=== PATIENT | male | born 2005 | race Caucasian/White ===

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

== ENCOUNTER 2025-07-22 03:48 | Emergency (ER) | payer MEDICAID, SELFPAY ==
[2025-07-22 03:50] VITALS: BP 130/70; PULSE 108; RESP 18; TEMP 37.4; O2SAT 98
--- OUTSIDE RECORDS SUMMARY | 2025-07-22 03:51 | XMS_ITS | Clinical Summary ---
Author Organization [facility] Address [address] [place] [address] Care Team Providers Care Buncher Hand Name Role Phone Dandre Quintanilla MD Primary Care Provider [phone] Dandre Quintanilla MD Unavailable Source Comments [facility],non-owned Affiliates and Associated Physician Practices is amultiple site organization consisting of ambulatory clinics and hospital sitesin [place], [place], [place] and [place]. This disclosure is being madepursuant to the Care Everywhere program and may not contain all information available regarding this patient. Last updated 18.[facility] Allergies No known active allergies Medications * Be aware that medications may not be up to date on this document. Alwaysverify current medications with the patient. EPINEPHrine (EPIPEN JR) 0.15 MG/0.3ML SOAJ 0.15 mg by Injection route as needed (Allergic reaction with difficulty breathing). 1 Each 0 4 Active Additional Information Patient not taking.Reported on 05/14/2022 bacitracin ointment Apply to affected area 3 times daily 28 g 0 Active Additional Information Patient not taking.Reported on 05/14/2022 Active Problems Problem Noted Date Diagnosed Date Acute alcoholic intoxication with complication 0 01/24/2021 Transaminitis 01/24/2021 Social History Tobacco Use Types Packs/Day Years Used Date Smoking Tobacco: Some Days Cigarettes Smokeless Tobacco: Current Chew Alcohol Use Standard Drinks/Week Comments Yes 0 (1 standard drink = 0.6 oz pur e alcohol) AUDIT-C Answer Date Recorded Q1: How often do you have a drink containing alc ohol? 2-4 times a month 05/14/2022 Q2: How many drinks containi ng alcohol do you have on a typical day when you are drinking? 7 to 9 05/14/2022 Q3: How often do you have si x or more drinks on one occasion? Monthly 05/14/2022 Sex and Gender Information Value Date Recorded Sex Assigned at Not on file Legal Sex Male 5:43 AM [employer] Gender Identity Not on file Sexual Orientation Not on file Last Filed Vital Signs Vital Sign Reading Time Taken Comments Blood Pressure 127/74 05/14/2022 6:30 AM CDT Pulse 79 05/14/2022 6:33 AM CDT Temperature 36.9 C (98.4 F) 05/14/2022 5:03 AM CDT Respiratory Rate 16 05/14/2022 6:33 AM CDT Oxygen Saturation 97% 05/14/2022 6:33 AM CDT Inhaled Oxygen Concentration - - Weight 60.5 kg (133 lb 6.1 oz) 05/14/2022 5:03 A M CDT Height 180.3 cm (5' 11) 01/24/2021 12:04 AM CDT Body Mass Index - - Plan of Treatment Health Maintenance Due Date Last Done Comments HIV SCREENING 2019 HPV VACCINE (1 - Male 3-dose series) 2019 MENINGOCOCCAL (Group B) VACC INE SHARED DECISION-MAKING (1 of 2 - Standard) 2020 HEPATITIS C SCREENING 04/02/2022 DTAP/TDAP/TD VACCINES (1 - Tdap) 2023 HEPATITIS B VACCINE (1 of 3 - 19+ 3-dose series) 2023 DEPRESSION SCREENING 07/31/2024 COVID-19 VACCINE (1 - 2024-2 6 season) 2025 INFLUENZA VACCINE (#1) 2025 ZOSTER VACCINE (1 of 2) 2054 HIB VACCINE Aged Out No longer eligi ble based on patient's age to complete this topic MENINGOCOCCAL GROUPS A/C/Y/W VACCINE Aged Out No longer eligible b ased on patient's age to complete this topic PNEUMOCOCCAL VACCINE Aged Out No long er eligible based on patient's age to complete this topic Insurance Care Teams Buncher Hand Relationship Specialty Start Date End Date Dandre Quintanilla MD PCP - General 06/29/20 Dandre Quintanilla MD Pediatrics 06/29/20
--- OUTSIDE RECORDS SUMMARY | 2025-07-22 03:51 | XMS_ITS | Patient Health Record ---
Author Organization [facility] Address [address] [place] [address] Phone [phone] Care Team Providers Care Real Estate Closing Coordinator Name Role Phone Aramis ISIDRO Love Primary Care Provider + [phone] Reason For Referral No Information Immunizations Status Vaccine Route Administration Date Visit Date Comments Administered FLU VAC NO PRSV 4VAL 6 mo+ Unknown 06/12/2012 Immunization rec ord from [facility] FLU VAC NO PRSV 4VAL 6 mo+ Unknown 05/14/2010 Immunization record from [facility] FLU VAC NO PRSV 4VAL 6 mo+ Unknown 07/16/2009 Immunization record from [facility] Vaccine for H1N1 FLU VAC NO PRSV 4VAL 6 mo+ Unknown 06/06/2008 Immunization record from [facility] FLU VAC NO PRSV 4VAL 6 mo+ Unknown 06/03/2008 Immunization record from [facility] Vaccine for H1N1 Hep A, ped/adol, 2 dose Unknown 05/14/2010 I mmunization record from [facility] Hep A, ped/adol, 2 dose Unknown 11/26/2008 I mmunization record from [facility] DTaP Unknown 11/26/2008 Immunization r ecord from [facility] DTaP Unknown 10/20/2005 Immunization r ecord from [facility] DTaP Unknown 03/18/2005 Immunization r ecord from [facility] DTaP Unknown 2004 Immunization r ecord from [facility] DTaP Unknown 2004 Immunization r ecord from [facility] Hib, unspecified formulation Unknown 11/26/2008 Immunization record from [facility] Hib, unspecified formulation Unknown 03/18/2008 Immunization record from [facility] Hib, unspecified formulation Unknown 2004 Immunization record from [facility] Hib, unspecified formulation Unknown 2004 Immunization record from [facility] MMR Unknown 11/26/2008 Immunization r ecord from [facility] MMR Unknown 10/20/2005 Immunization r ecord from [facility] IPV Unknown 11/26/2008 Immunization r ecord from [facility] IPV Unknown 03/18/2008 Immunization r ecord from [facility] IPV Unknown 03/18/2005 Immunization r ecord from [facility] IPV Unknown 2004 Immunization r ecord from [facility] IPV Unknown 2004 Immunization r ecord from [facility] Varicella Unknown 11/26/2008 Immunization r ecord from [facility] Varicella Unknown 10/20/2005 Immunization r ecord from [facility] Hep B,pediatric/adolescent, 3 dose schedule Unknown 03/18/2008 Immunization rec ord from [facility] Hep B,pediatric/adolescent, 3 dose schedule Unknown 03/18/2005 Immunization rec ord from [facility] Hep B,pediatric/adolescent, 3 dose schedule Unknown 2004 Immunization rec ord from [facility] Hep B,pediatric/adolescent, 3 dose schedule Unknown 2004 Immunization rec ord from [facility] Pneumococcal conjugate PCV 13 Unknown 03/18/2008 Immunization record from [facility] Pneumococcal conjugate PCV 7 Unknown 10/20/2005 Immunization record from [facility] Pneumococcal conjugate PCV 7 Unknown 03/18/2005 Immunization record from [facility] Pneumococcal conjugate PCV 7 Unknown 2004 Immunization record from [facility] Pneumococcal conjugate PCV 7 Unknown 2004 Immunization record from [facility] Social History Sex Observation Social History Observation Description Sex Observation Male Social History Primary Social History Social Info Question Answer Notes Living Arrangement Living Arrangement: Dependent Marcy sanders Living with: Parent(s) Is this a supportive environment? Yes Employment Status Employment Status: Unemployed Problems Problem Type SNOMED Code ICD Code Dates Problem Status W/U Status Risk Notes Problem Mood disorder ([id number]) Mood disorder (F39) Added On: 021 Active confirmed Plan Of Treatment No Information Insurance Providers Payer Name Payer Address Payer Phone Subscriber Number Group Number Insured Name Patient Relationship to Insured Coverage Start Date Coverage End Date [facility] Att[facility] Claims Department [address] [place] [address] [phone] [id number] Montserrat Caballero Child - Insured has Financial Responsibility 0 [place] [facility] [address] [place] [address] [phone] [id number] Montserrat Caballero Child - Insured has Financial Responsibility 1 Medical (General) History Surgical History Surgery Date(Month/Year)
[2025-07-22 04:46] LABS: Influenza A QL RT-PCR Negative (Negative); Influenza B QL RT-PCR Negative (Negative); RSV RNA, RT-PCR Negative (Negative); SARS-CoV-2 RNA PCR Negative (Negative)
--- OUTSIDE RECORDS SUMMARY | 2025-07-22 07:50 | XMS_ITS | Clinical Summary ---
Author Organization [facility] Address [address] [place] [address] Care Team Providers Care Plunket Nurse Name Role Phone Dandre Quintanilla MD Primary Care Provider Dandre Quintanilla MD Unavailable Source Comments [facility],non-owned Affiliates and Associated Physician Practices is amultiple site organization consisting of ambulatory clinics and hospital sitesin [place], [place], [place] and [place]. This disclosure is being madepursuant to the Care Everywhere program and may not contain all information available regarding this patient. 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
== END 2025-07-22 08:11 | disposition left against medical advice (07) ==
PROVIDERS: Emergency Medicine; Emergency Provider Emergency Medicine
DX: R50.9 Fever, unspecified (principal); M54.2 Cervicalgia
CPT/HCPCS: 87637; 99199